=== PATIENT | male | born 1985 | race Caucasian/White ===

== ENCOUNTER 2021-03-21 18:06 | Inpatient (IN) | payer BC ==
[2021-03-21] MEDS ORDERED: Ondansetron 4 MG/2 ML SDV IVPUSH PRN (19:12)
[2021-03-21] MEDS ORDERED: Acetaminophen 325 MG Tab PO PRN (19:12)
[2021-03-21] MEDS ORDERED: Pantoprazole 40 MG in Sodium Chloride 0.9% 10 ML IVPUSH SCH (19:15)
[2021-03-21] MEDS: Omeprazole 20 MG Cap.CR PO SCH (20:06)
[2021-03-21] MEDS: Enoxaparin 40 MG/0.4 ML Syringe SUBCUT SCH (20:07)
[2021-03-21] MEDS ORDERED: Hydroxychloroquine 200 MG Tab PO SCH (21:00)
[2021-03-21] MEDS ORDERED: Calcium Carbonate 500 MG Tab.Chew PO PRN (21:38)
[2021-03-21] MEDS: HYDROXYCHLOROQUINE 200 MG PO SCH (22:01)
[2021-03-22] MEDS: Dexamethasone 4 MG Tab PO SCH (09:16)
[2021-03-22] MEDS: Omeprazole 20 MG Cap.CR PO SCH (09:17)
[2021-03-22] MEDS: HYDROXYCHLOROQUINE 200 MG PO SCH ×2 (09:17→20:36)
[2021-03-22] MEDS: guaiFENesin/Dextromethorphan 100-10 MG/5 ML Soln 10 ML Cup PO PRN ×2 (09:18→13:08)
[2021-03-22] MEDS: Albuterol/Ipratropium 4 GM Inhalation Spray INH PRN ×2 (09:18→13:08)
[2021-03-22] MEDS: REMDESIVIR 100 MG in Sodium Chloride 0.9% 100 ML IV SCH (20:29)
[2021-03-22] MEDS: Enoxaparin 40 MG/0.4 ML Syringe SUBCUT SCH (20:33)
[2021-03-23 06:28] LABS: BLOOD UREA NITROGEN,BUN 14 mg/dL (7.0-18.0); CARBON DIOXIDE,CO2 27.4 mmol/L (21.0-32.0); CHLORIDE,CL 103 mmol/L (98-107); GLUCOSE RANDOM 115 mg/dL (74-106); POTASSIUM,K 4.8 mmol/L (3.5-5.1); SODIUM,NA 136 mmol/L (136-148)
[2021-03-23] MEDS: Omeprazole 20 MG Cap.CR PO SCH (09:17)
[2021-03-23] MEDS: HYDROXYCHLOROQUINE 200 MG PO SCH ×2 (09:17→20:44)
[2021-03-23] MEDS: Albuterol/Ipratropium 4 GM Inhalation Spray INH PRN (09:17)
[2021-03-23] MEDS: Dexamethasone 4 MG Tab PO SCH (09:18)
[2021-03-23] MEDS: Enoxaparin 40 MG/0.4 ML Syringe SUBCUT SCH (20:44)
[2021-03-23] MEDS: REMDESIVIR 100 MG in Sodium Chloride 0.9% 100 ML IV SCH (20:45)
[2021-03-24 08:25] LABS: BLOOD UREA NITROGEN,BUN 13 mg/dL (7.0-18.0); CARBON DIOXIDE,CO2 27.7 mmol/L (21.0-32.0); CHLORIDE,CL 105 mmol/L (98-107); GLUCOSE RANDOM 112 mg/dL (74-106); POTASSIUM,K 4.7 mmol/L (3.5-5.1); SODIUM,NA 139 mmol/L (136-148)
[2021-03-24] MEDS: Omeprazole 20 MG Cap.CR PO SCH (08:36)
[2021-03-24] MEDS: Dexamethasone 4 MG Tab PO SCH (08:36)
[2021-03-24] MEDS: HYDROXYCHLOROQUINE 200 MG PO SCH ×2 (08:37→20:46)
[2021-03-24] MEDS: Albuterol/Ipratropium 4 GM Inhalation Spray INH PRN (08:38)
[2021-03-24] MEDS: REMDESIVIR 100 MG in Sodium Chloride 0.9% 100 ML IV SCH (20:35)
[2021-03-24] MEDS: Enoxaparin 40 MG/0.4 ML Syringe SUBCUT SCH (20:36)
[2021-03-25] MEDS: Omeprazole 20 MG Cap.CR PO SCH (06:49)
[2021-03-25 06:58] LABS: BLOOD UREA NITROGEN,BUN 13 mg/dL (7.0-18.0); CARBON DIOXIDE,CO2 24.3 mmol/L (21.0-32.0); CHLORIDE,CL 105 mmol/L (98-107); GLUCOSE RANDOM 125 mg/dL (74-106); POTASSIUM,K 4.4 mmol/L (3.5-5.1); SODIUM,NA 137 mmol/L (136-148)
[2021-03-25] MEDS: HYDROXYCHLOROQUINE 200 MG PO SCH (08:44)
[2021-03-25] MEDS: Dexamethasone 4 MG Tab PO SCH (08:44)
[2021-03-25] MEDS ORDERED: REMDESIVIR 100 MG in Sodium Chloride 0.9% 100 ML IV SCH (10:00)
[2021-03-25 13:20] VITALS: BP 109/61; PULSE 60
== END 2021-03-25 14:15 | disposition home or self-care (01) | DRG 137 ==
LOC: MW.MS 18:06
PROVIDERS: ADMIT Student in an Organized Health Care Education/Training Program; ATTEND Student in an Organized Health Care Education/Training Program
PROC: 3E0DX3Z Introduction of Anti-inflammatory into Mouth and Pharynx, External Approach (ICD-10-PCS; principal; 2021-03-22)
PROC: XW033E5 Introduction of Remdesivir Anti-infective into Peripheral Vein, Percutaneous Approach, New Technology Group 5 (ICD-10-PCS; 2021-03-22)
DX: U07.1 COVID-19 (principal); J96.01 Acute respiratory failure with hypoxia; J12.82 Pneumonia due to coronavirus disease 2019; D84.9 Immunodeficiency, unspecified; U09.9 Post COVID-19 condition, unspecified; K21.9 Gastro-esophageal reflux disease without esophagitis; Z88.0 Allergy status to penicillin; Z79.899 Other long term (current) drug therapy
CPT/HCPCS: 36415; 80053; 85025; A9270-GY; J0248; J1650; J8540